=== PATIENT | female | born 1940 | race Caucasian/White ===

== ENCOUNTER → 2016-06-06 | Outpatient (CLI) | payer OTHER, MEDICARE | LOC: MMPC 11:11 | PROVIDERS: ATTEND Physician Assistant | DX: M26.621 Arthralgia of right temporomandibular joint (principal) | CPT/HCPCS: 99213; G0463 ==

== ENCOUNTER → 2016-07-24 | Outpatient (CLI) | payer OTHER, MEDICARE | LOC: MMPC 09:00 | PROVIDERS: ATTEND Family Medicine | DX: I10 Essential (primary) hypertension (principal); M10.09 Idiopathic gout, multiple sites; E03.9 Hypothyroidism, unspecified | CPT/HCPCS: 99214; G0463 ==